=== PATIENT | male | born 1960 | race American Indian/Alaskan Native ===

== ENCOUNTER 2017-10-26 08:46 | Emergency (ER) | payer OTHER ==
[2017-10-26 09:03] VITALS: BP 118/86
[2017-10-26 11:47] LABS: Bilirubin,Urine NEG (Negative); Blood,Urine SM (Negative); Color,Urine Yellow (Yellow); Mucus,Urine FEW /HPF; Nitrite,Urine NEG (Negative); Protein,Urine <15 mg/dL mg/dL (Negative); Urobilinogen,Urine < 2.0 mg/dL (<2.0); WBC,Urine < 1.0 /HPF (0.0-6.0)
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
--- NOTE | 2017-10-26 12:54 | Emergency Department Report ---
Blank Doc - Documentation Documentation: Patient had a [id number] exam performed by me. I agree with all documentation from Suzan ALBA
== END 2017-10-26 12:52 | disposition home or self-care (01) ==
LOC: ED 08:46
DX: N48.89 Other specified disorders of penis (principal); R31.9 Hematuria, unspecified; I10 Essential (primary) hypertension; Z87.891 Personal history of nicotine dependence
CPT/HCPCS: 81001; 87086; 99283